=== PATIENT | female | born 1965 | race Caucasian/White ===

== ENCOUNTER → 2016-06-02 | Outpatient (CLI) | payer BC ==
--- NOTE | 2016-06-03 09:13 | XR ---
EXAMINATION TYPE: XR chest 2V DATE OF EXAM: 06/02/2016 11:38 AM COMPARISON: NONE HISTORY: Cough FINDINGS: The lungs are clear and there is no pneumothorax, pleural effusion, or focal pneumonia. Surgical cl ips overlying the cervical spine. No overt failure. Chronic appearing rib deformity on the left noted . Hypertrophic change of the spine noted. IMPRESSION: 1. No acute process.
== END | disposition home or self-care (01) ==
LOC: RADXRYALE 11:29
PROVIDERS: ATTEND Internal Medicine
DX: R05 Cough (principal)
CPT/HCPCS: 71020

== ENCOUNTER → 2016-09-24 | Outpatient (CLI) | payer BC ==
--- NOTE | 2016-09-25 16:54 | XR ---
EXAMINATION TYPE: XR ankle complete LT DATE OF EXAM: 09/24/2016 12:57 PM COMPARISON: NONE HISTORY: 51-year-old female ankle pain after strain injury last week TECHNIQUE: 3 views FINDINGS: Ankle mortise is congruent with preservation of the distal tibiofibular overlap. Talar dome is intact . No acute fracture, subluxation, or dislocation. Smooth delineation to the Achilles tendon. Subtalar joint is aligned. IMPRESSION: No acute osseous abnormality seen.
== END | disposition home or self-care (01) ==
LOC: RADXRYALE 12:46
PROVIDERS: ATTEND Internal Medicine
DX: S93.402A Sprain of unspecified ligament of left ankle, initial encounter (principal)

== ENCOUNTER → 2017-09-18 | Outpatient (CLI) | payer BC ==
--- NOTE | 2017-09-18 11:23 | XR ---
EXAMINATION TYPE: XR ankle complete LT DATE OF EXAM: 09/18/2017 COMPARISON: 09/24/2016 HISTORY: Pain TECHNIQUE: 3 views of the left ankle are submitted for evaluation. FINDINGS: There is no evidence for fracture or dislocation. Ankle mortise is intact. Soft tissues are within normal limits. IMPRESSION: 1. No evidence for acute fracture.
== END | disposition home or self-care (01) ==
LOC: RADXRYALE 10:44
PROVIDERS: ATTEND Internal Medicine
DX: M25.572 Pain in left ankle and joints of left foot (principal)

== ENCOUNTER → 2020-01-17 | Outpatient (CLI) | payer BC ==
--- NOTE | 2020-01-19 09:27 | MM ---
Reason for exam: screening (asymptomatic). Last mammogram was performed 4 years and 6 months ago. History: Patient is postmenopausal. Physical Findings: A clinical breast exam by your physician is recommended on an annual basis and results should be correlated with mammographic findings. MG 3D Screening Mammo W/Cad Bilateral CC and MLO view(s) were taken. Prior study comparison: July 10, 2015, bilateral MG screening mammo w CAD. September 05, 2013, bilateral digital screening mammo w/CAD. There are scattered fibroglandular densities. Loop recorder device on the left. No significant changes when compared with prior studies. ASSESSMENT: Negative, BI-RAD 1 RECOMMENDATION: Routine screening mammogram of both breasts in 1 year.
== END | disposition home or self-care (01) ==
LOC: RADMAMWWP 15:57
DX: Z12.31 Encounter for screening mammogram for malignant neoplasm of breast (principal)
CPT/HCPCS: 77063; 77067